=== PATIENT | male | born 1985 | race Caucasian/White ===

== ENCOUNTER 2016-07-06 12:44 | Day surgery (SDC) | payer OTHER ==
[2016-07-06] VITALS (10 sets, daily range): BP systolic 96–115; BP diastolic 42–72; PULSE 52–70; RESP 11–21; O2SAT 96–100
[~2016-07-06] VITALS: Ht 182.9 cm; Wt 73.0 kg
--- NOTE | 2016-07-06 07:59 | PCM.HPANE ---
Patient Data Surgeon Admitting Provider: Attending Provider:Eduar Joel MD Primary Care Physician:Rosa Other Provider:Dean Wall Anesthesia Reason for Visit Perianal Abscess Ht/WT & BMI Height (Feet): 6 Weight (Kilograms): 72.57 Body Mass Index 21.00 Allergies Coded Allergies: No Known Allergies (Unverified , 07/05/16) Past Anesthesia History Anesthesia History: Denies:: Anesthesia Reactions, Fam Anesthesia Reaction Diabetes History Hx Diabetes?: No MRSA MRSA: No Medications Reported Medications Mesalamine 800 Mg Tablet.dr2,400 Mg PO DAILY 07/05/16 History History of ENT Problems?: No HEENT History: Denies:: Abnormal Airway Cataracts Difficult Intubation Dysphagia Glaucoma Hearing Problem Sinus Problem TMJ Denture Type: None Teeth Condition: Within Normal Limits Hx of Heart Problems?: No Cardiovascular History: Denies:: AICD Abdominal Aortic Aneurism Atrial Fibrillation Cardiac Surgery Chest Pain Congestive Heart Failure Coronary Artery Disease Edema Heart Murmur Hypertension Irregular Heartbeat Pacemaker Peripheral Vascular Rheumatic Fever Thrombophlebitis Valvular Heart Disease Hx of Respiratory Problem?: No Respiratory History: Denies:: Asthma COPD Chest Surgery Cough Dyspnea Emphysema Hemoptysis Oxygen Administration Pneumonia Pulmonary Embolism Tuberculosis Use of C-PAP Machine Use of Inhalers / NEBS Hx Neurologic Problems?: No Neurological History: Denies:: Alzheimer's Disease CVA Dementia Dizziness Headaches Multiple Sclerosis Parkinson's Disease Peripheral Neuropathy Seizures TIA Hx of GI Problems?: Yes Gastrointestinal History: Denies:: Gall Bladder Disease Gastroesphageal Reflux Gastrointestinal Bleeding Heartburn Hepatitis Hx of Problems?: No Genitourinary History: Denies:: HX of Hemodialysis Kidney Stones Urinary Tract Infection Male Hx: Denies:: Prostate Problems Scrotal Mass Testicular Surgery Hx Musculoskeletal Problems?: No Musculoskeletal History: Denies:: Back Injury Degenerative Joint Fibromyalgia Joint Replacement Musculoskeletal Trauma Myasthenia Gravis Osteoarthritis Rheumatoid Arthritis Systemic Lupus Hx of Psycho/Social Problems?: No Psycho Social History: Denies:: Anxiety Bipolar Disorder Hx Depression Suicide Attempt Hx Surgeries?: Yes (sedation for wisdom teeth only) Hx Any Other Health Problems?: Yes Other History: Denies:: Cancer Thyroid Disease History Blood Transfusions: Denies:: Accept Blood Products? Blood Transfuse Reaction Blood Transfusions Hx Diabetes: No Hx Alcohol Use: YesAlcoholic Drinks Per Day: 2-3 weekHx Substance Use: No Have You Smoked inLast 12 mo: No Stop/Bang P-Blood Pressure: treated: No B- Body Mass Index > 35 kg/m2: No A- Age over 50: No N- Neck Large Circumference: No G- Gender Male: Yes Risk Assessment Category Category 1A: Patient has history of documented sleep apnea, and HAS NOT received any narcotic, sedative or anesthesia administration during this stay. Category 1B: Patient has history of documented sleep apnea, and HAS received any narcotic , sedative or anesthesia administration during this stay Category 2: Patient has SUSPECTED Obstructive Sleep Apnea, and HAS received any narcotic , sedative or anesthesia administration during this stay. Category 3: Patient has SUSPECTED Obstructive Sleep Apnea and HAS NOT received narcotic, sedative or anesthesia administration during this stay. Category 4: Outpatient in Procedural Areas with known sleep apnea or who screen positive for High Risk via the STOP/BANG questionnaire. Exam Exam General Appearance: Alert, Oriented X3, Cooperative, No Acute Distress HEENT/AIRWAY: MP 2 Lungs: Clear to Auscultation, Normal Air Movement Heart: Exam Unremarkable, Regular Rate/Rhythm, No Murmurs/Rubs/Gallops Plan Impression Patient chart reviewed, patient interviewed and anesthestic plan with risks, benefits, and alternatives discussed, and informed consent obtained. ASA Physical Status: ASA2 Mod Systemic Disease Anesthetic Plan: GA Bene/Risks/Altern/Consents: Yes HP Complete Prior to Induction: Yes January Toro DO Jul 06, 2016 07:59 Ronni Peterson MD Jul 06, 2016 13:43
[~2016-07-06 12:44] MED LIST: MESA800T3 PO
[2016-07-06] MEDS ORDERED: Dexamethasone 4 mg/mL Inj ONE (12:45)
[2016-07-06] MEDS ORDERED: MetoCLOpramide 5 mg/mL 2 mL Inj ONE (12:45)
[2016-07-06] MEDS ORDERED: fentaNYL-PF 50 mCg/mL 2 mL Inj ONE (12:45)
[2016-07-06] MEDS ORDERED: Propofol 10,000 mCg/mL 20 mL Inj ONE (12:45)
[2016-07-06] MEDS: Lactated Ringer's 1,000 ML IV SCH ×2 (12:53→13:26)
[2016-07-06] MEDS ORDERED: Lactated Ringer's 1,000 ML IV SCH (13:43)
[2016-07-06] MEDS ORDERED: Lactated Ringer's 500 ML IV PRN (13:43)
[2016-07-06] MEDS ORDERED: HYDROmorphone 1 mg/mL Inj IVPUSH PRN (13:45)
[2016-07-06] MEDS ORDERED: EPHEDrine Sulfate 50 mg/mL Inj IVPUSH PRN (13:45)
[2016-07-06] MEDS ORDERED: Dexamethasone 4 mg/mL Inj IVPUSH PRN (13:45)
[2016-07-06] MEDS ORDERED: MetoCLOpramide 5 mg/mL 2 mL Inj IVPUSH PRN (13:45)
[2016-07-06] MEDS ORDERED: Phenylephrine 10,000 mCg/mL Inj IVPUSH PRN (13:45)
[2016-07-06] MEDS ORDERED: fentaNYL-PF 50 mCg/mL 2 mL Inj IVPUSH PRN (13:45)
[2016-07-06] MEDS ORDERED: Ondansetron 2 mg/mL 2 mL Inj IVPUSH PRN (13:45)
--- NOTE | 2016-07-06 14:10 | PCM.ANEP1 ---
Post Anesthesia Phase 1 PACU Phase 1 Assessment Vital Signs Vital Signs Date Time Temp Pulse Resp B/P Pulse Ox O2 Delivery O2 Flow Rate FiO2 07/06/16 14:05 57 13 98/52 98 Nasal Cannula 2 07/06/16 14:02 36.5 57 15 96/42 96 Nasal Cannula 4 07/06/16 12:59 36.5 52 16 115/68 100 Room Air Anesthetic Administered: GA Level of Alertness: Sleepy, easy to arouse MANLEY's with Equal Strength: Yes Pain: No Nausea or Vomiting: No Cardiovascular Function and Hy: No Oxygen Delivery: Room Air Lungs: Clear to Auscultation, Normal Air Movement Dermatome Level: Full Sensation Complications: No Ronni Peterson MD Jul 06, 2016 14:10
[2016-07-06] MEDS ORDERED: Lactated Ringer's 1,000 ML IV ONE (15:05)
--- NOTE | 2016-07-06 22:46 | OP ---
[address] [address] OPERATIVE REPORT PATIENT: RAHEEM PORRAS : 1985 MR#: [id number] ADMIT: 07/06/2016 JOB ID: [id number] DATE OF SURGERY: 07/06/2016 ANESTHESIA: General. PREOPERATIVE DIAGNOSIS(ES): 1. Likely anal fistula. 2. History of inflammatory bowel disease, diagnosed as ulcerative colitis, though I suspect he has Crohn's. POSTOPERATIVE DIAGNOSIS(ES): 1. Anal fistula. 2. History of inflammatory bowel disease, diagnosed as ulcerative colitis, though I suspect he has Crohn's. OPERATIVE PROCEDURE: Exam under anesthesia and placement of drain and seton. SURGEON: Eduar Joel MD. CASH CLERK: Yunier Mars PA-C (the professional nursing assistant was required for the safe and timely completion of the case). COMPLICATIONS: None. ESTIMATED BLOOD LOSS: None. CONDITION: Satisfactory. SPECIMEN: None. FINDINGS: He had an external opening in the left anterior lateral position several centimeters from the anal verge just below the scrotum. This tracked very superficially to the anterior midline just inside the verge. Inspection of the anal canal demonstrated inflammation suggestive of active Crohn's disease. INDICATION/SIGNIFICANT HISTORY: The patient is a 31-year-old man who was diagnosed with inflammatory bowel disease a number of years ago. Initially, there was some thought that this may represent Crohn's, but eventually, based on colonoscopic findings, he was diagnosed with ulcerative colitis. He has had extensive periods of remission, but recently was restarted on medication. He recently developed a perianal abscess which required drainage a couple of times. He was referred to me and I recommended exam anesthesia to assess for fistula. OPERATIVE TECHNIQUE: The patient was taken to the operating room and placed in supine position. General anesthesia was administered and he was placed in lithotomy. The perineum was prepped and draped in standard surgical fashion. A procedure pause performed. Began with a digital rectal examination which was unremarkable. I then gently inserted a lacrimal duct probe into the external fistula opening and easily identified the pathway in the internal opening. This was exchanged for a blue vessel loop which was secured in place as a draining seton. I then inserted an anal speculum and inspected the anal canal. This appeared actively inflamed. The course of the fistula was so superficial that I did consider doing a primary fistulotomy. However, immediately prior to the operation the patient expressed concerns about having any incisions or wounds as he is about to go on a sailing trip. CARMEN
== END 2016-07-06 23:59 | disposition home or self-care (01) ==
LOC: SAS 12:44
PROVIDERS: ATTEND General Practice
DX: K60.5 Anorectal fistula (principal); K58.9 Irritable bowel syndrome, unspecified
CPT/HCPCS: 46020; J1100; J2765; J3010; J7120

== ENCOUNTER 2016-08-01 09:50 | Day surgery (SDC) | payer OTHER ==
[~2016-08-01] VITALS: Ht 182.9 cm; Wt 73.4 kg
[2016-08-01] VITALS (8 sets, daily range): BP systolic 103–111; BP diastolic 47–67; PULSE 54–70; RESP 16–19; O2SAT 97–100
[2016-08-01] MEDS ORDERED: Ondansetron 2 mg/mL 2 mL Inj ONE (09:51)
[2016-08-01] MEDS ORDERED: Dexamethasone 4 mg/mL Inj ONE (09:51)
[2016-08-01] MEDS ORDERED: Propofol 10,000 mCg/mL 20 mL Inj ONE (09:51)
[2016-08-01] MEDS ORDERED: MetoCLOpramide 5 mg/mL 2 mL Inj ONE (09:51)
[2016-08-01] MEDS ORDERED: Lactated Ringer's 1,000 ML IV ONE (09:56)
--- NOTE | 2016-08-01 13:41 | PCM.HPANE ---
Patient Data Date of Service: August 01, 2016 Surgeon Admitting Provider: Attending Provider:Eduar Joel MD Primary Care Physician:Rosa Other Provider:Dean Wall Anesthesia Reason for Visit Perianal Abscess Ht/WT & BMI Height (Feet): 6 Weight (Kilograms): 72.57 Body Mass Index 21.00 Allergies Coded Allergies: No Known Allergies (Unverified , 07/05/16) Past Anesthesia History Anesthesia History: Denies:: Abnormal Airway, Anesthesia Reactions, Difficult Intubation, Fam Anesthesia Reaction, Fam Malignant Hypertherm, Malignant Hyperthermia Additional Information: s/p LMA placement in 06/2016 pt's lingual frenulum "cut" Diabetes History Hx Diabetes?: No MRSA MRSA: No Medications Hypertension Medication: No Home Meds Incl Beta Beni: No Reported Medications Mesalamine 800 Mg Tablet.dr2,400 Mg PO DAILY 07/05/16 History History of ENT Problems?: No HEENT History: Denies:: Abnormal Airway Cataracts Difficult Intubation Dysphagia Glaucoma Hearing Problem Sinus Problem TMJ Denture Type: None Teeth Condition: Within Normal Limits Hx of Heart Problems?: No Cardiovascular History: Denies:: AICD Abdominal Aortic Aneurism Atrial Fibrillation Cardiac Surgery Chest Pain Congestive Heart Failure Edema Heart Murmur Hypertension Irregular Heartbeat Pacemaker Rheumatic Fever Thrombophlebitis Valvular Heart Disease Hx of Respiratory Problem?: No Respiratory History: Denies:: Asthma COPD Chest Surgery Cough Dyspnea Emphysema Hemoptysis Oxygen Administration Pneumonia Pulmonary Embolism Tuberculosis Use of C-PAP Machine Hx Neurologic Problems?: No Neurological History: Denies:: Alzheimer's Disease CVA Dementia Dizziness Headaches Multiple Sclerosis Parkinson's Disease Seizures Hx of GI Problems?: Yes Other GI Pertinent History: recent surgery here Hx of Problems?: No Genitourinary History: Denies:: HX of Hemodialysis Kidney Stones Urinary Tract Infection Male Hx: Denies:: Prostate Problems Scrotal Mass Testicular Surgery Hx Musculoskeletal Problems?: No Musculoskeletal History: Denies:: Back Injury Degenerative Joint Joint Replacement Musculoskeletal Trauma Systemic Lupus Hx of Psycho/Social Problems?: No Psycho Social History: Denies:: Anxiety Bipolar Disorder Hx Depression Suicide Attempt Hx Surgeries?: Yes (sedation for wisdom teeth only,rectal exam, seton placed) Hx Any Other Health Problems?: Yes Other History: Denies:: Cancer Thyroid Disease History Blood Transfusions: Denies:: Blood Transfuse Reaction Blood Transfusions Hx Diabetes: No Hx Alcohol Use: YesHx Substance Use: No Smoking Status: Never Smoker Have You Smoked inLast 12 mo: No Stop/Bang Treated for Sleep Apnea?: No Do You Have a CPAP Machine?: No S-Snoring: Do You Snore Loudly: No T-Tired: feel tired, fatigued: No O-Obsered: Observed not breath: No P-Blood Pressure: treated: No B- Body Mass Index > 35 kg/m2: No A- Age over 50: No N- Neck Large Circumference: No G- Gender Male: Yes JENN Total Score: 1 JENN Risk Assessment: Low Risk, <3 Yes Risk Assessment Category Category 1A: Patient has history of documented sleep apnea, and HAS NOT received any narcotic, sedative or anesthesia administration during this stay. Category 1B: Patient has history of documented sleep apnea, and HAS received any narcotic , sedative or anesthesia administration during this stay Category 2: Patient has SUSPECTED Obstructive Sleep Apnea, and HAS received any narcotic , sedative or anesthesia administration during this stay. Category 3: Patient has SUSPECTED Obstructive Sleep Apnea and HAS NOT received narcotic, sedative or anesthesia administration during this stay. Category 4: Outpatient in Procedural Areas with known sleep apnea or who screen positive for High Risk via the STOP/BANG questionnaire. Exam Exam General Appearance: Alert, Oriented X3, Cooperative, No Acute Distress HEENT/AIRWAY: MP 2, Neck Movement (FROM), Mouth Opening (>3), Other (tmd>3) Lungs: Normal Air Movement Heart: Exam Unremarkable, Regular Rate/Rhythm, Normal S1, Normal S2 Plan Impression Patient chart reviewed, patient interviewed and anesthestic plan with risks, benefits, and alternatives discussed, and informed consent obtained. ASA Physical Status: ASA2 Mod Systemic Disease Anesthetic Plan: GA Bene/Risks/Altern/Consents: Yes HP Complete Prior to Induction: Yes Ronni Peterson MD August 01, 2016 07:53 Robert Payne MD August 01, 2016 13:41
[2016-08-01] MEDS ORDERED: Bupivacaine-MPF 0.25%/EPI 30 mL Inj INJ ONE (14:05)
[2016-08-01] MEDS ORDERED: Lactated Ringer's 1,000 ML IV SCH (14:07)
[2016-08-01] MEDS ORDERED: Lactated Ringer's 500 ML IV PRN (14:07)
[2016-08-01] MEDS ORDERED: Dexamethasone 4 mg/mL Inj IVPUSH PRN (14:10)
[2016-08-01] MEDS ORDERED: Phenylephrine 10,000 mCg/mL Inj IVPUSH PRN (14:10)
[2016-08-01] MEDS ORDERED: Ondansetron 2 mg/mL 2 mL Inj IVPUSH PRN (14:10)
[2016-08-01] MEDS ORDERED: fentaNYL-PF 50 mCg/mL 2 mL Inj IVPUSH PRN (14:10)
[2016-08-01] MEDS ORDERED: MetoCLOpramide 5 mg/mL 2 mL Inj IVPUSH PRN (14:10)
[2016-08-01] MEDS ORDERED: EPHEDrine Sulfate 50 mg/mL Inj IVPUSH PRN (14:10)
[2016-08-01] MEDS ORDERED: HYDROmorphone 1 mg/mL Inj IVPUSH PRN (14:10)
[2016-08-01] MEDS ORDERED: oxyCODONE-Acetamin 5-325 mg Tablet PO PRN (14:20)
--- NOTE | 2016-08-01 15:13 | OP ---
[address] [address] OPERATIVE REPORT PATIENT: RAHEEM PORRAS : 1985 MR#: [id number] ADMIT: 08/01/2016 JOB ID: [id number] DATE OF SURGERY: 08/01/2016 ANESTHESIA: General. PREOPERATIVE DIAGNOSIS(ES): Anal fistula in the setting of inflammatory bowel disease. POSTOPERATIVE DIAGNOSIS(ES): Anal fistula in the setting of inflammatory bowel disease. OPERATIVE PROCEDURES: Exam under anesthesia with incision and drainage of perianal abscess. SURGEON: Dr. Eduar Joel LABOR RELATIONS DIRECTOR: None. COMPLICATIONS: None. ESTIMATED BLOOD LOSS: Minimal. CONDITION: Satisfactory. FINDINGS: Just 1 cm lateral to the previously placed seton, there was a small opening. This was in continuity with the seton and was very superficial. Therefore, rather than replacing the seton, I elected to just open up the overlying skin to widely drain that area. INDICATIONS/SIGNIFICANT HISTORY: The patient is a 31-year-old man with a history of inflammatory bowel disease which at times was thought to be due to Crohn's, but then most recently ulcerative colitis. He recently developed a recurrent perianal abscess and a few weeks ago I took him to the OR and noted the fistula for which I placed a seton. This seemed to have inflammation in his anal canal at that time suggesting the possibility of Crohn disease. Recently he has been having increasing pain adjacent to the seton and in the clinic it looked like he had an abscess adjacent to that. OPERATIVE TECHNIQUE: The patient was taken to the operating room and placed in the supine position. General anesthesia administered and placed in lithotomy. The perineum was prepped and draped in a standard surgical fashion and a procedural pause performed. I began by gently probing the new opening just lateral to the cecum. This communicated directly to the seton in a very superficial plane. I, therefore, elected to open it up as there is only really 1 cm of tissue between this new opening and the seton. I opened this with electrocautery. I injected a local anesthetic. I probed around and could find no other internal opening other than the one that was already established with a seton drain. I then inserted a speculum into the anus and inspected this. There was some inflammation, some blood and pus. The case was then concluded.
--- NOTE | 2016-08-03 09:35 | PCM.ANEP1 ---
Post Anesthesia PACU Phase 1 Assessment Date of Service: August 03, 2016 Vital Signs 08/01/16 15:32 T 36.5 RR 16 HR 55 BP 110/65 SaO2 98% RA Anesthetic Administered: GA Level of Alertness: Awake, talking MANLEY's with Equal Strength: Yes Pain: No Pain Scale Score: 0 Nausea or Vomiting: No CV Function and Hydration: No Airway Device: Simple Mask in PACU Oxygen Delivery: Simple Mask Lungs: Normal Air Movement PACU Phase 2 Assessment Complications: No Patient Instructions Provided: Yes Robert Payne MD August 03, 2016 09:35
== END 2016-08-01 23:59 | disposition home or self-care (01) ==
LOC: SAS 09:50
PROVIDERS: ATTEND General Practice
DX: K61.0 Anal abscess (principal); K58.9 Irritable bowel syndrome, unspecified
CPT/HCPCS: 46050; J1100; J2250; J2405; J2765; J7120

== ENCOUNTER 2016-08-31 14:34 | Day surgery (SDC) | payer OTHER ==
[~2016-08-31] VITALS: Ht 182.9 cm; Wt 73.2 kg
[2016-08-31] VITALS (13 sets, daily range): BP systolic 99–121; BP diastolic 47–72; PULSE 48–66; RESP 12–18; O2SAT 98–100
[~2016-08-31 14:34] MED LIST changes: +Dexamethasone 4 mg/mL Inj IVPUSH PRN; +EPHEDrine Sulfate 50 mg/mL Inj IVPUSH PRN; +HYDROmorphone 1 mg/mL Inj IVPUSH PRN; +Labetalol 5 mg/mL 4 mL Inj IV PRN; +Lactated Ringer's 1,000 ML IV SCH; +Lactated Ringer's 500 ML IV PRN; +MetoCLOpramide 5 mg/mL 2 mL Inj IVPUSH PRN; +Ondansetron 2 mg/mL 2 mL Inj IVPUSH PRN; +Phenylephrine 10,000 mCg/mL Inj IVPUSH PRN; +fentaNYL-PF 50 mCg/mL 2 mL Inj IVPUSH PRN; +hydrALAZINE 20 mg/mL Inj IVPUSH PRN
[2016-08-31] MEDS ORDERED: Propofol 10,000 mCg/mL 20 mL Inj ONE (14:35)
[2016-08-31] MEDS ORDERED: fentaNYL-PF 50 mCg/mL 2 mL Inj ONE (14:35)
[2016-08-31] MEDS ORDERED: Dexamethasone 4 mg/mL Inj ONE (14:35)
[2016-08-31] MEDS ORDERED: Ondansetron 2 mg/mL 2 mL Inj ONE (14:35)
[2016-08-31] MEDS ORDERED: Lidocaine PF 1% 30 mL Inj ONE (14:35)
[2016-08-31] MEDS ORDERED: Ketamine 10 mg/mL 20 mL Inj ONE (14:35)
[2016-08-31] MEDS: Lactated Ringer's 1,000 ML IV SCH ×2 (14:39→16:30)
[2016-08-31] MEDS ORDERED: Bupivacaine Liposome 1.3% 20 mL Inj ONE (17:00)
--- NOTE | 2016-08-31 17:07 | PCM.HPANE ---
Patient Data Date of Service: Aug 31, 2016 Surgeon Admitting Provider: Attending Provider:Eduar Joel MD Primary Care Physician:Rosa Other Provider:Dean Wall Anesthesia Reason for Visit Anal Fistula Ht/WT & BMI Height (Feet): 6 Height (Inches): 0 Weight (Kilograms): 73.2 Body Mass Index 21.00 Allergies Coded Allergies: No Known Allergies (Unverified , 08/31/16) Past Anesthesia History Anesthesia History: Positive for:: Anesthesia Reactions (noted to have lingual frenulum"cut" after LMA 06/2016), Denies:: Abnormal Airway, Difficult Intubation, Fam Anesthesia Reaction, Fam Malignant Hypertherm, Malignant Hyperthermia Diabetes History Hx Diabetes?: No MRSA MRSA: No Medications Home Meds Incl Beta Beni: No Reported Medications Mesalamine 800 Mg Tablet.dr2,400 Mg PO DAILY 07/05/16 History History of ENT Problems?: No HEENT History: Denies:: Abnormal Airway Cataracts Difficult Intubation Dysphagia Hearing Problem Sinus Problem TMJ Denture Type: None Teeth Condition: Within Normal Limits Hx of Heart Problems?: No Cardiovascular History: Denies:: AICD Abdominal Aortic Aneurism Atrial Fibrillation Cardiac Surgery Chest Pain Congestive Heart Failure Edema Heart Murmur Hypertension Irregular Heartbeat Pacemaker Rheumatic Fever Thrombophlebitis Valvular Heart Disease Hx of Respiratory Problem?: No Respiratory History: Denies:: Asthma COPD Chest Surgery Cough Dyspnea Emphysema Hemoptysis Oxygen Administration Pneumonia Pulmonary Embolism Tuberculosis Use of C-PAP Machine Hx Neurologic Problems?: No Neurological History: Denies:: Alzheimer's Disease CVA Dementia Dizziness Headaches Multiple Sclerosis Parkinson's Disease Seizures Hx of GI Problems?: Yes Other GI Pertinent History: prior surgery here 07/2016 Hx of Problems?: No Genitourinary History: Denies:: HX of Hemodialysis Kidney Stones Urinary Tract Infection Male Hx: Denies:: Prostate Problems Scrotal Mass Testicular Surgery Hx Musculoskeletal Problems?: No Musculoskeletal History: Denies:: Back Injury Degenerative Joint Joint Replacement Musculoskeletal Trauma Systemic Lupus Hx of Psycho/Social Problems?: No Psycho Social History: Denies:: Anxiety Bipolar Disorder Hx Depression Suicide Attempt Hx Surgeries?: Yes (sedation for wisdom teeth only,rectal exam, seton placed) Hx Any Other Health Problems?: Yes Other History: Denies:: Cancer Thyroid Disease History Blood Transfusions: Denies:: Blood Transfuse Reaction Blood Transfusions Hx Diabetes: No Hx Alcohol Use: YesHx Substance Use: No Smoking Status: Never Smoker Have You Smoked inLast 12 mo: No Stop/Bang S-Snoring: Do You Snore Loudly: No T-Tired: feel tired, fatigued: No O-Obsered: Observed not breath: No P-Blood Pressure: treated: No B- Body Mass Index > 35 kg/m2: No A- Age over 50: No N- Neck Large Circumference: No G- Gender Male: Yes JENN Total Score: 1 JENN Risk Assessment: Low Risk, <3 Yes Risk Assessment Category Category 1A: Patient has history of documented sleep apnea, and HAS NOT received any narcotic, sedative or anesthesia administration during this stay. Category 1B: Patient has history of documented sleep apnea, and HAS received any narcotic , sedative or anesthesia administration during this stay Category 2: Patient has SUSPECTED Obstructive Sleep Apnea, and HAS received any narcotic , sedative or anesthesia administration during this stay. Category 3: Patient has SUSPECTED Obstructive Sleep Apnea and HAS NOT received narcotic, sedative or anesthesia administration during this stay. Category 4: Outpatient in Procedural Areas with known sleep apnea or who screen positive for High Risk via the STOP/BANG questionnaire. Exam Exam Vital Signs Vital Signs Date Time Temp Pulse Resp B/P Pulse Ox O2 Delivery O2 Flow Rate FiO2 08/31/16 14:53 36.5 50 18 106/57 100 Room Air General Appearance: Alert, Oriented X3, Cooperative, No Acute Distress HEENT/AIRWAY: MP 1 Lungs: Clear to Auscultation, Normal Air Movement Heart: Exam Unremarkable, Regular Rate/Rhythm, No Murmurs/Rubs/Gallops Meds/Labs/Diagnostics Admission Meds Current Medications Lactated Ringer's (Lr) 1,000 ml @ 120 mls/hr Q8H20M IV Last administered on t 14:39; Start 08/31/16 at 07:36; Stop 08/31/16 at 15:35; Status DC Plan Impression Patient chart reviewed, patient interviewed and anesthestic plan with risks, benefits, and alternatives discussed, and informed consent obtained. NPO per Anesth. Guidelines: Yes ASA Physical Status: ASA2 Mod Systemic Disease Anesthetic Plan: GA Bene/Risks/Altern/Consents: Yes HP Complete Prior to Induction: Yes Edgar Mei MD Aug 31, 2016 17:07
[2016-08-31] MEDS ORDERED: Bupivacaine Liposome 1.3% 20 mL Inj INFILTRATE ONE (17:21)
[2016-08-31] MEDS ORDERED: oxyCODONE-Acetamin 5-325 mg Tablet PO PRN (17:35)
--- NOTE | 2016-08-31 20:28 | OP ---
[address] [address] OPERATIVE REPORT PATIENT: RAHEEM PORRAS : 1985 MR#: [id number] ADMIT: 08/31/2016 JOB ID: [id number] DATE OF SURGERY: 08/31/2016 ANESTHESIA: General. PREOPERATIVE DIAGNOSIS(ES): 1. Ulcerative colitis. 2. Anal fistula with associated skin tag. POSTOPERATIVE DIAGNOSIS(ES): 1. Ulcerative colitis. 2. Anal fistula with associated skin tag. OPERATIVE PROCEDURE: 1. Exam under anesthesia. 2. Fistulotomy. 3. Excision of anal tag. SURGEON: Dr. Eduar Joel. CAR INSPECTOR: None. COMPLICATIONS: None. ESTIMATED BLOOD LOSS: Less than 5 mL. CONDITION: Satisfactory. SPECIMEN: Anal tag. FINDINGS: The fistula tract, as previously noted, involved essentially no muscle. Fistulotomy was performed. The tag at the anal verge was excised. INDICATIONS/SIGNIFICANT HISTORY: The patient is a 31-year-old man with a history of ulcerative colitis. At one point, there was question of whether or not he had Crohn's or UC. He recently developed an anal abscess which was drained by me and there was a fistula noted at that time. He then underwent reinvestigation to determine whether or not this was indeed ulcerative colitis or Crohn's. Evaluation suggested it was indeed ulcerative colitis and therefore given the superficial nature of the fistula, I advised him to proceed with fistulotomy. He had a sentinel tag adjacent to the internal opening of the fistula. He found that it bothered him and he requested it excised at the same time. OPERATIVE TECHNIQUE: The patient was taken to the operating room and placed in supine position. General anesthesia was administered. He was then placed in lithotomy and the perineum was prepped and draped in standard surgical fashion. A procedural pause was performed. Then, anesthetized the area with Exparel. He had a seton in place. I inserted a lacrimal probe through the fistula tract. It was in the left anterolateral aspect extending about 3-4 cm from the anterior midline to the 2 o'clock position. I then opened the fistulotomy with electrocautery. Hemostasis was achieved with electrocautery. I excised the tag with electrocautery and handed it off. I had also performed anoscopy which showed some inflammation and pus, but this is probably in the distal rectum rather than the true anal canal. The case was then concluded.
--- NOTE | 2016-08-31 20:53 | PCM.ANEP1 ---
Post Anesthesia PACU Phase 1 Assessment Vital Signs Vital Signs Date Time Temp Pulse Resp B/P Pulse Ox O2 Delivery O2 Flow Rate FiO2 08/31/16 18:37 59 16 100 Room Air 08/31/16 18:31 36.1 60 16 116/72 100 Room Air 08/31/16 18:25 36.4 60 14 121/60 99 Room Air 08/31/16 18:20 66 15 120/62 99 Room Air 08/31/16 18:15 64 15 118/66 99 Room Air 08/31/16 18:10 62 15 105/58 99 Room Air 08/31/16 18:05 62 17 103/56 98 Room Air 08/31/16 18:00 55 16 104/54 98 Room Air 08/31/16 17:55 48 14 102/55 98 Room Air 08/31/16 17:45 49 12 104/52 99 Simple Mask 10 08/31/16 17:40 53 13 101/51 99 Simple Mask 10 08/31/16 17:35 36.5 52 16 99/47 99 Simple Mask 10 08/31/16 14:53 36.5 50 18 106/57 100 Room Air Anesthetic Administered: GA Level of Alertness: Awake, talking Pain: No Nausea or Vomiting: No CV Function & Hydration Stable: Yes Airway Device: Oxygen Delivery: Room Air Lungs: Clear to Auscultation, Normal Air Movement PACU Phase 2 Assessment Complications: No Follow up Care: N/A Patient Instructions Provided: N/A Edgar Mei MD Aug 31, 2016 20:53
--- NOTE | 2016-09-04 14:47 | PATH ---
SURGICAL PATHOLOGY Attending Physician:Eduar Joel MD CASE STATUS: Signed Out PATIENT NAME: RAHEEM PORRAS PID: [id number] : 1985 DATE COLLECTED:08/31/2016 00:00 SPECIMEN: Anus, Fistula CLINICAL HISTORY: ANAL FISTUAL AND TAG 1). ANAL TAG FINAL DIAGNOSIS: 1.ANAL FISTULA AND TAG: POLYPOID-SHAPED FRAGMENT OF ANAL TISSUE WITH SEVERE ACUTE AND CHRONIC INFLAMMATION AND FOCAL NECROSIS CONSISTENT WITH FISTULOUS TRACT. NEGATIVE FOR ATYPIA AND MALIGNANCY. ICD10 K60.3 GROSS DESCRIPTION: Received in formalin, labeled with the patient's name and "anal tag" is one fragment of trivedi tissue measuring 0.6 x 0.6 x 0.6 cm. The surface is wrinkly and unevenly pigmented. The surgical margin is inked blue and the fragment is trisected and totally submitted in one cassette. ([id number]) MICRO DESCRIPTION: See diagnosis. ICD-9 CODES: CPT CODES: 1: 47380 Electronically Signed Out Brandin Caldwell MD [facility] [address], [place] [address] Technical component performed at [facility], [facility] [address], [place], [address]
== END 2016-08-31 23:59 | disposition home or self-care (01) ==
LOC: SAS 14:34
PROVIDERS: ATTEND General Practice
DX: K60.3 Anal fistula (principal); K64.4 Residual hemorrhoidal skin tags; K51.90 Ulcerative colitis, unspecified, without complications
CPT/HCPCS: 46280; J1100; J1885; J2250; J2405; J3010; J7120